=== PATIENT | male | born 1995 | race Caucasian/White ===

== ENCOUNTER 2018-03-27 18:23 | Emergency (ER) | payer OTHER ==
[2018-03-27 19:23] VITALS: BP 111/76
--- NOTE | 2018-03-27 20:19 | UC ---
Headache HPI - HPI Summary HPI Summary: C/O headache over the last 1 1/2 weeks. Frontal to all over like brain is being squeezed. Some chills, no fevers. URI symptoms with congestion, cough. No photophobia. ? nausea. Temporal pain primarily, worse with coughing. - History Of Current Complaint Chief Complaint: Maria Guadalupe Stated Complaint: MIGRAINES X 1 WEEK Time Seen by Provider: 03/27/18 20:06 Hx Obtained From: Patient Onset/Duration: Gradual Onset, Lasting Weeks - 1 1/2 Onset Of Symptoms: Gradual, Still Present Initially Headache Was: Moderate Currently Pain Is: Moderate Pain Intensity: 5 Timing: Constant Character: Dull, Pressure Location of Headache: Temporal Aggravating Factor(s): Other - coughing Allevating Factor(s): Rest, Medication - OTC Associated Signs And Symptoms: Positive: Sinus Pressure. Negative: Nausea, Vomiting, Fever - but chills, Neck Pain, Neck Stiffness, Visual Changes - Allergies/Home Medications Allergies/Adverse Reactions: Allergies Allergy/AdvReac Type Severity Reaction Status Date / Time No Known Allergies Allergy Verified 03/27/18 19:17 PMH/Surg Hx/FS Hx/Imm Hx Previously Healthy: Yes - Surgical History Surgical History: None - Family History Known Family History: Negative: Diabetes - Social History Occupation: Student Lives: Dormitory/Roommates Alcohol Use: Weekly Substance Use Type: None Smoking Status (MU): Never Smoked Tobacco - Immunization History Most Recent Tetanus Shot: UTD Review of Systems All Other Systems Reviewed And Are Negative: Yes Constitutional: Positive: Chills ENT: Positive: Nasal Discharge, Sinus Congestion Respiratory: Positive: Shortness Of Breath - with coughing fits, worse at night , Cough Neurological: Positive: Headache Is Patient Immunocompromised?: No Physical Exam Triage Information Reviewed: Yes Appearance: Well-Nourished, Ill-Appearing, Pain Distress Vital Signs: Initial Vital Signs Temp 98.5 F 03/27/18 19:17 Pulse 82 03/27/18 19:17 Resp 16 03/27/18 19:17 BP 111/76 03/27/18 19:17 Pulse Ox 98 03/27/18 19:17 Vital Signs Reviewed: Yes Eyes: Positive: Conjunctiva Inflamed ENT: Positive: Nasal congestion, TMs normal, Sinus tenderness - sphenoid Neck exam: Normal Respiratory: Positive: Lungs clear, Wheezing - just expiratory wheezing with coughing Cardiovascular: Positive: RRR, No Murmur Musculoskeletal Exam: Normal Neurological Exam: Normal Psychological Exam: Normal Skin Exam: Normal Headache Course/Dx - Differential Dx/Diagnosis Differential Diagnosis/HQI/PQRI: Migraine, Sinus Headache, Tension Headache Provider Diagnoses: Acute URI. Acute bronchospasm. Acute sinusitis Discharge - Sign-Out/Discharge Documenting (check all that apply): Patient Departure All imaging exams completed and their final reports reviewed: No Studies - Discharge Plan Condition: Stable Disposition: HOME Prescriptions: Cefdinir 250mg/5 ml* [Omnicef 250 mg/5 ml*] 300 mg PO BID #100 ml PrednisoLONE 3 MG/ML ORAL.SOLU [PrednisoLONE 3 MG/ML 5 ml ORAL.SOLUTION*] 45 mg PO DAILY #120 ml Patient Education Materials: Sinusitis (ED), Cefdinir (By mouth), Bronchospasm (ED), Prednisolone (By mouth) Forms: *Physical Education Release Referrals: No Primary Care Phys,NOPCP [Primary Care Provider] - Additional Instructions: NASAL SPRAYS AND DROPS: Afrin in the PUMP/ MIST bottle (Get generic 12 hours nasal decongestant spray). Tilt your head down and look at the floor while doing a strong sniff with the spray. Decongestant nasal sprays and drops often give dramatic relief from congestion. They are often recommended for patients with sinus infection to assist with sinus drainage. Persons with high blood pressure should consult the doctor before using these nasal sprays. Afrin and Alpesh-Synephrine are common [id number] preparations. They should not be used for more than five days, as "rebound" congestion can occur - - the congestion flares as the drug wears off. A way of dealing with this rebound congestion problem is to medicate only one nostril each time, allowing the other nostril to recover from the medicine' s effects. When you no longer need the drug during the day, spray only one nostril each night. This helps you sleep well without severe rebound congestion. Call the doctor if you develop severe headache, palpitations, or chest pain. - Billing Disposition and Condition Condition: STABLE Disposition: Home
[2018-03-27] MEDS ORDERED: Cefdinir 250mg/5 ml* 100 ml ORAL.SUSP PO ONE (20:21)
[2018-03-27] MEDS ORDERED: methylPREDNISolone 125 MG* 2 ML VIAL IM ONE (20:21)
== END 2018-03-27 20:47 | disposition home or self-care (01) ==
LOC: UCCORT 18:23
DX: J06.9 Acute upper respiratory infection, unspecified (principal); J98.01 Acute bronchospasm; J01.90 Acute sinusitis, unspecified
CPT/HCPCS: 96372; 99202; G0463; J2930